=== PATIENT | female | born 1960 | race Two or more races ===

== ENCOUNTER 2024-09-08 06:24 | Day surgery (SDC) | payer OTHER ==
[2024-08-31 09:20] VITALS: BMI 35.7
[2024-09-08 09:01] VITALS: TEMP 98
[2024-09-08 09:17] VITALS: RESP 18
[2024-09-08 09:42] VITALS: BP 129/65; PULSE 74
== END 2024-09-08 09:43 | disposition home or self-care (01) ==
LOC: JASU-ENDO 06:24
PROVIDERS: ATTEND Internal Medicine Gastroenterology
PROC: 0DBN8ZX Excision of Sigmoid Colon, Via Natural or Artificial Opening Endoscopic, Diagnostic (ICD-10-PCS; principal; 2024-09-08 08:00)
DX: Z12.11 Encounter for screening for malignant neoplasm of colon (principal); D12.7 Benign neoplasm of rectosigmoid junction; D12.5 Benign neoplasm of sigmoid colon; Z86.0100 Personal history of colon polyps, unspecified
CPT/HCPCS: 88305-TC